=== PATIENT | male | born 1985 | race Caucasian/White ===

== ENCOUNTER 2017-07-24 15:25 | Emergency (ER) | payer OTHER ==
[~2017-07-24 15:25] MED LIST: GABA600T2 PO; OXCA600T3 PO; VILA10TA PO
--- NOTE | 2017-07-24 15:45 | PHYS DOC ---
Past History Past Medical History: Anxiety Past Surgical History: Tonsillectomy Alcohol Use: None Drug Use: None Adult General Chief Complaint Chief Complaint: TONGUE SWELLING/INJURY HPI HPI 32-year-old male presents with sudden onset and angioedema. The patient was eating a hamburger and chips when suddenly his lower lip began to swell. He had a burning sensation on the inside of his mouth just prior to the swelling. He feels as though the back of his tongue might be slightly swollen. He's had no difficulty breathing. This all started 45 minutes prior to arrival. Patient has never had this happen before. He is not on an ALDO inhibitor. He is however on Cymbalta and Trileptal. He has had no medication changes recently. Never been allergic to any food or food product. He denies shortness of breath or chest pain. He denies fever or chills. Took 50 mg of Benadryl prior to arrival. Review of Systems Review of Systems Constitutional: Denies fever or chills [] Eyes: Denies change in visual acuity, redness, or eye pain [] HENT: Swollen lower lip[] Respiratory: Denies cough or shortness of breath [] Cardiovascular: No additional information not addressed in HPI [] GI: Denies abdominal pain, nausea, vomiting, bloody stools or diarrhea [] : Denies dysuria or hematuria [] Musculoskeletal: Denies back pain or joint pain [] Integument: Denies rash or skin lesions [] Neurologic: Denies headache, focal weakness or sensory changes [] Endocrine: Denies polyuria or polydipsia [] All other systems were reviewed and found to be within normal limits, except as documented in this note. Current Medications Current Medications Current Medications Medications (Trade) Dose Ordered Sig/[facility] Start Time Stop Time Status Last Admin Dose Admin Famotidine (Pepcid Vial) 20 mg 1X ONCE 07/24/17 16:00 07/24/17 16:01 Methylprednisolone Sodium Succinate (SOLU-Medrol 125MG VIAL) 125 mg 1X ONCE 07/24/17 16:00 07/24/17 16:01 Allergies Allergies Allergies Coded Allergies Type Severity Reaction Last Updated Verified No Known Drug Allergies 08/30/15 No Physical Exam Physical Exam Constitutional: Well developed, well nourished, no acute distress, non-toxic appearance. [] HENT: Normocephalic, atraumatic, bilateral external ears normal, angioedema of the lower lip. Airway patent [] Eyes: PERRLA, EOMI, conjunctiva normal, no discharge. [] Neck: Normal range of motion, no tenderness, supple, no stridor. [] Cardiovascular:Heart rate regular rhythm, no murmur [] Lungs & Thorax: Bilateral breath sounds clear to auscultation [] Abdomen: Bowel sounds normal, soft, no tenderness, no masses, no pulsatile masses. [] Skin: Warm, dry, no erythema, no rash. [] Back: No tenderness, no CVA tenderness. [] Extremities: No tenderness, no cyanosis, no clubbing, ROM intact, no edema. [] Neurologic: Alert and oriented X 3, normal motor function, normal sensory function, no focal deficits noted. [] Psychologic: Affect normal, judgement normal, mood normal. [] EKG EKG [] Radiology/Procedures Radiology/Procedures [] Course & Med Decision Making Course & Med Decision Making Pertinent Labs and Imaging studies reviewed. (See chart for details) Trileptal has a side effect of angioedema. This is likely the cause. The patient 's angioedema stable thus far. We gave him Pepcid and Solu-Medrol. He remains stable with no difficulty breathing during his stay in the ED. His lip looks slightly less swollen. I advised the patient discontinue the carbamazapine. He will follow-up with his PCP to determine if he needs to restart a different medication. Dragon Disclaimer Dragon Disclaimer This electronic medical record was generated, in whole or in part, using a voice recognition dictation system. Departure Departure: Referrals: PCP,POOL (PCP) Scripts Prednisone (PREDNISONE) 50 Mg Tablet 1 TAB PO DAILY, #5 TAB As long as swelling is present Prov: FRANCISCO JAVIER VALERIO DO 07/24/17 FRANCISCO JAVIER VALERIO DO July 24, 2017 15:45
[2017-07-24 15:58] LABS: BASO # 0.1 x10^3/uL (0.0-0.2); BASO % 1 % (0-3); EOS # 0.3 x10^3/uL (0.0-0.7); EOS % 3 % (0-3); HEMATOCRIT 47.6 % (39.0-53.0); HEMOGLOBIN 16.5 g/dL (13.0-17.5); LYMPH # 2.9 x10^3/uL (1.0-4.8); LYMPH % 39 % (24-48); MEAN CORPUSCULAR HEMOGLOBIN 30 pg (25-35); MEAN CORPUSCULAR HGB CONC 35 g/dL (31-37); MEAN CORPUSCULAR VOLUME 87 fL (79-100); MONO # 0.5 x10^3/uL (0.0-1.1); MONO % 6 % (0-9); NEUT # 3.8 x10^3uL (1.8-7.7); NEUT % 51 % (31-73); PLATELET COUNT 199 x10^3/uL (140-400); RED BLOOD COUNT 5.46 x10^6/uL (4.30-5.70); RED CELL DISTRIBUTION WIDTH 12.7 % (11.5-14.5); WHITE BLOOD COUNT 7.4 x10^3/uL (4.0-11.0)
[2017-07-24] MEDS ORDERED: FAMOTIDINE 20 MG/2 ML VIAL IVP ONE (16:00)
[2017-07-24] MEDS ORDERED: methylPREDNISolone SOD SUCC PF 125 MG/2 ML VIAL. IV ONE (16:00)
[2017-07-24 16:07] LABS: CALCIUM 8.7 mg/dL (8.5-10.1); GFR 87.2; POTASSIUM 3.8 mmol/L (3.5-5.1)
[2017-07-24] MEDS ORDERED: PRED50TA PO (17:00)
[2017-07-24 17:40] VITALS: BP 135/74
== END 2017-07-24 17:40 | disposition home or self-care (01) ==
LOC: ER 15:25
DX: T78.3XXA Angioneurotic edema, initial encounter (principal); F41.9 Anxiety disorder, unspecified
CPT/HCPCS: 36415; 80048; 85025; 96374; 96375; 99284; J2930; S0028

== ENCOUNTER 2020-04-07 14:48 | Emergency (ER) | payer BC, OTHER ==
[~2020-04-07] VITALS: Ht 182.9 cm; Wt 121.3 kg
[~2020-04-07 14:48] MED LIST changes: -GABA600T2 PO; +GABA600T7 PO; +PRED50TA PO
--- NOTE | 2020-04-07 15:34 | RAD ---
CT of the abdomen and pelvis without contrast. 04/07/2020 3:05 PM Indication: Reason: RIGHT FLANK PAIN. HX OF KIDNEY STONES AND LITHO. DYSURIA / Spl. Instructions: / History: Comparison Study: None. Technique: Multidetector CT imaging of the abdomen pelvis is obtained without administration of contr ast. Findings: The visualized bilateral lung bases are clear. The liver, spleen, bilateral adrenal glands, gallbladder, and pancreas have a normal noncontrast enh anced appearance. There is mild nonspecific perinephric stranding bilaterally. Otherwise, the bilater al kidneys are grossly normal in appearance. There is no evidence of nephrolithiasis or obstructive u ropathy. The ureters are normal in course and caliber. The bladder is grossly unremarkable. There is no significant free fluid or free air in the abdomen or pelvis. There is no evidence of bow el obstruction or significant inflamatory change. The appendix is well visualized and grossly normal. There is no acute osseous abnormality identified. Impression: 1. No evidence of acute intra-abdominal abnormality 2. No evidence of nephrolithiasis or acute obstructive uropathy. CT DOSING PQRS STATEMENT: One or more of the following individualized dose reduction techniques were utilized for this examinat ion: 1. Automated exposure control 2. Adjustment of the mA and/or kV according to patient size 3. Use of iterative reconstruction technique Electronically signed by: Dustin Limon MD (04/07/2020 3:31 PM) [id number]
[2020-04-07 16:49] LABS: CLARITY,URINE CLEAR; COLOR,URINE YELLOW
[2020-04-07 16:50] LABS: BACTERIA,URINE 0 /HPF (0-FEW); BILIRUBIN,URINE NEG (NEG); GLUCOSE,URINE NEG (NEG); NITRITE,URINE NEG (NEG); RBC,URINE 0 /HPF (0-2); UROBILINOGEN,URINE 0.2 mg/dL (0.2 mg/dL); WBC,URINE 0 /HPF (0-4)
[2020-04-07] MEDS ORDERED: KETOROLAC 60 MG/2 ML VIAL. IM ONE (17:00)
[2020-04-07] MEDS ORDERED: ORPHENADRINE CITRATE 60 MG/2 ML VIAL. IM ONE (17:00)
[2020-04-07] MEDS ORDERED: CYCL5TAB PO (17:06)
[2020-04-07] MEDS ORDERED: IBUP800T19 PO (17:06)
--- NOTE | 2020-04-07 17:07 | PHYS DOC ---
Past History Past Medical History: Anxiety, Depression Past Surgical History: No Surgical History Alcohol Use: Rarely Drug Use: None General Adult EDM: Chief Complaint: FLANK PAIN HPI: HPI: 35-year-old male coming in for right flank pain starting yesterday. Patient states he has a history of bilateral kidney stones and status post stent in the past. Has passed one by himself. He states the pain is in a similar area but feels different. Denies any hematuria or dysuria. Denies any fevers, cough, left-sided back pain, diarrhea or constipation. No other past medical history Review of Systems: Review of Systems: All other systems within normal limits except for as noted in the HPI Current Medications: Current Meds: Current Medications Medications (Trade) Dose Ordered Sig/[facility] Start Time Stop Time Status Last Admin Dose Admin Ketorolac Tromethamine (Toradol Im) 60 mg 1X ONCE 04/07/20 17:00 04/07/20 17:01 UNV Orphenadrine Citrate (Norflex) 60 mg 1X ONCE 04/07/20 17:00 04/07/20 17:01 UNV Allergies: Allergies: Allergies Coded Allergies Type Severity Reaction Last Updated Verified No Known Drug Allergies 08/30/15 No Physical Exam: PE: Constitutional: Well developed, well nourished, no acute distress, non-toxic appearance. [] HENT: Normocephalic, atraumatic, bilateral external ears normal, nose normal. [] Eyes: PERRLA, conjunctiva normal, no discharge. [] Neck: No rigidity, supple, no stridor. [] Cardiovascular: Regular rate and rhythm, brisk cap refill [] Lungs & Thorax: Non labored symmetric respirations, no tachypnea or respiratory distress [] Abdomen: Soft, nondistended. Skin: Warm, dry, no erythema, no rash. [] Back: Unremarkable, right CVA tenderness, no spinal tenderness Extremities: No deformities, range of motion grossly intact, no lower extremity edema [] Neurologic: Alert and oriented X 3, no focal deficits noted. [] Psychologic: Affect normal, judgement normal, mood normal. [] Current Patient Data: Labs: Laboratory Tests Test 04/07/20 15:50 Urine Collection Type Unknown Urine Color Yellow Urine Clarity Clear Urine pH 7.0 Urine Specific [place] 1.015 Urine Protein Neg (NEG-TRACE) Urine Glucose (UA) Neg mg/dL (NEG) Urine Ketones (Stick) Neg mg/dL (NEG) Urine Blood Neg (NEG) Urine Nitrite Neg (NEG) Urine Bilirubin Neg (NEG) Urine Urobilinogen Dipstick 0.2 mg/dL (0.2 mg/dL) Urine Leukocyte Esterase Neg (NEG) Urine RBC 0 /HPF (0-2) Urine WBC 0 /HPF (0-4) Urine Squamous Epithelial Cells None /LPF Urine Bacteria 0 /HPF (0-FEW) EKG: EKG: [] Radiology/Procedures: Radiology/Procedures: CT of the abdomen and pelvis without contrast. 04/07/2020 3:05 PM Indication: Reason: RIGHT FLANK PAIN. HX OF KIDNEY STONES AND LITHO. DYSURIA / Spl. Instructions: / History: Comparison Study: None. Technique: Multidetector CT imaging of the abdomen pelvis is obtained without administration of contrast. Findings: The visualized bilateral lung bases are clear. The liver, spleen, bilateral adrenal glands, gallbladder, and pancreas have a normal noncontrast enhanced appearance. There is mild nonspecific perinephric stranding bilaterally. Otherwise, the bilateral kidneys are grossly normal in appearance. There is no evidence of nephrolithiasis or obstructive uropathy. The ureters are normal in course and caliber. The bladder is grossly unremarkable. There is no significant free fluid or free air in the abdomen or pelvis. There is no evidence of bowel obstruction or significant inflamatory change. The appendix is well visualized and grossly normal. There is no acute osseous abnormality identified. Impression: 1. No evidence of acute intra-abdominal abnormality 2. No evidence of nephrolithiasis or acute obstructive uropathy. [] Heart Score: Risk Factors: Risk Factors: DM, Current or recent (<one month) smoker, HTN, HLP, family history of CAD, obesity. Risk Scores: Score 0 - 3: 2.5% MACE over next 6 weeks - Discharge Home Score 4 - 6: 20.3% MACE over next 6 weeks - Admit for Clinical Observation Score 7 - 10: 72.7% MACE over next 6 weeks - Early Invasive Strategies Course & Med Decision Making: Course & Med Decision Making Pertinent Labs and Imaging studies reviewed. (See chart for details) [] Dragon Disclaimer: Draghussein Disclaimer: This electronic medical record was generated, in whole or in part, using a voice recognition dictation system. Departure Departure: Impression: Primary Impression: Right-sided back pain Disposition: 01 DC HOME SELF CARE/HOMELESS Condition: STABLE Referrals: PCP,POOL (PCP) Patient Instructions: Back Injury Prevention Scripts Ibuprofen (IBUPROFEN) 800 Mg Tablet 1 TAB PO TID PRN for PAIN for 10 Days, #30 TAB 1 Refill Prov: ABDI URIBE MD 04/07/20 Cyclobenzaprine Hcl (CYCLOBENZAPRINE HCL) 5 Mg Tablet 1 TAB PO TID PRN for PAIN for 5 Days, #15 TAB Prov: ABDI URIBE MD 04/07/20 ABDI URIBE MD Apr 07, 2020 17:07
[2020-04-07 17:14] VITALS: BP 139/80
== END 2020-04-07 17:15 | disposition home or self-care (01) ==
LOC: ER 14:48
DX: M54.89 Other dorsalgia (principal); R10.9 Unspecified abdominal pain; F41.9 Anxiety disorder, unspecified; F32.9 Major depressive disorder, single episode, unspecified; Z87.442 Personal history of urinary calculi
CPT/HCPCS: 74176; 81001; 96372; 99284; J1885; J2360

== ENCOUNTER 2020-08-03 14:09 | Emergency (ER) | payer BC ==
[~2020-08-03] VITALS: Ht 182.9 cm; Wt 119.0 kg
[~2020-08-03 14:09] MED LIST changes: +CYCL5TAB PO; +IBUP800T19 PO
[2020-08-03 14:24] VITALS: BP 167/105
[2020-08-03] MEDS ORDERED: KETOROLAC 60 MG/2 ML VIAL. IM ONE (15:00)
[2020-08-03] MEDS ORDERED: HYDROcodone/APAP 5/325MG 1 TAB TABLET PO ONE (15:00)
[2020-08-03] MEDS ORDERED: AMOXICILLIN/K CLAV 875/125MG TABLET. PO ONE (15:00)
[2020-08-03] MEDS ORDERED: LIDOCAINE 2% VISCOUS 15 ML SOLUTION. ONE (15:16)
[2020-08-03] MEDS ORDERED: LIDOCAINE 2% VISCOUS 15 ML SOLUTION. SWSW ONE (15:30)
--- NOTE | 2020-08-03 15:34 | PHYS DOC ---
Past History Past Medical History: High Cholesterol, Hypertension (USHA ROSARIO APRN) Past Surgical History: No Surgical History Additional Past Surgical Histo: SURGERY FOR KIDNEY STONES (USHA ROSARIO APRN) Additional Smoking Information: CEWS TOBACCO Alcohol Use: Rarely Drug Use: None (USHA ROSARIO APRN) Adult General Chief Complaint Chief Complaint: DENTAL PROBLEM HPI HPI Patient is a 35-year-old male presents emergency department complaining of right upper lip and gum swelling with dental pain that started last evening and has slowly become worse over the past 2 days. Patient reports he was renzo eduled to have a root canal 3 months ago on 3 of his teeth in the area of the swelling but was unable to afford the procedure and elected to postpone until he saved up money. Patient currently rates his pain a 7/10 on a 1-10 pain scale. Denies numbness or tingling to his face lip tongue or mouth, denies sore throat or throat swelling. Denies shortness of breath. Denies headaches, denies recent fever or chills. Patient denies chest pains, nausea, vomiting, diarrhea, or abdominal pains. Patient denies allergies to medications, reports he takes prescription Cymbalta, lisinopril, lovastatin, 81 mg aspirin, multivitamin. Patient denies any other physical complaints or physical concerns. Patient reports his last tetanus immunization was greater than 5 years ago. (USHA ROSARIO APRN) Review of Systems Review of Systems 14 body systems of review of systems have been reviewed. See HPI for pertinent positives and negative responses, otherwise all other systems are negative, nonpertinent or noncontributory. (USHA ROSARIO APRN) Current Medications Current Medications Current Medications Medications (Trade) Dose Ordered Sig/[facility] Start Time Stop Time Status Last Admin Dose Admin Acetaminophen/ Hydrocodone Bitart (Lortab 5/325) 2 tab 1X ONCE 08/03/20 15:00 08/03/20 15:01 DC 08/03/20 15:11 2 TAB Amoxicillin/ Clavulanate Potassium (Augmentin 875/ 125mg) 1 tab 1X ONCE 08/03/20 15:00 08/03/20 15:01 DC 08/03/20 15:11 1 TAB Ketorolac Tromethamine (Toradol Im) 60 mg 1X ONCE 08/03/20 15:00 08/03/20 15:01 DC 08/03/20 15:12 60 MG Lidocaine HCl (Viscous Lidocaine) 15 ml 1X ONCE 08/03/20 15:30 08/03/20 15:31 (USHA ROSARIO APRN) Allergies Allergies Allergies Coded Allergies Type Severity Reaction Last Updated Verified No Known Drug Allergies 08/30/15 No (USHA ROSARIO APRN) Physical Exam Physical Exam Constitutional: Well developed, well nourished, no acute distress, non-toxic appearance. 35-year-old male holding the right side of his face. HENT: Normocephalic, atraumatic, bilateral external ears normal, oropharynx moist, no oral exudates, nose normal. Oropharynx moist, pink, no uvular edema, no tonsillar swelling or edema, no laryngeal edema appreciated, no postnasal dri p. No loss of sensation to the face, mild swelling to upper lip right side of frenulum. No palpable abscess from external skin surfaces, patient has marked dental caries, and palpable apical abscess between upper teeth #11 and #12 measuring 3 mm in diameter. No drainage. No loss of sensation or movement of the tongue. Patient speaking in normal voice tones. No lymphadenopathy appreciated of the head or neck. Eyes: conjunctiva normal, no discharge. Neck: Normal range of motion, no tenderness, supple, no stridor. No nuchal rigidity, no meningismus signs. Cardiovascular: No cyanosis appreciated, distal cap refill less than 2 seconds. Lungs & Thorax: Patient is in no respiratory distress, no adventitious lung sounds appreciated audibly. Skin: Warm, dry, no erythema, no rash. Back: No tenderness Extremities: No tenderness, no cyanosis, no clubbing, ROM intact, no edema. Neurologic: Alert and oriented X 3, normal motor function, normal sensory function, no focal deficits noted. Psychologic: Affect normal, judgement normal, mood normal. (USHA ROSARIO APRN) Current Patient Data Vital Signs Vital Signs Date Time Temp Pulse Resp B/P (MAP) Pulse Ox O2 Delivery O2 Flow Rate FiO2 08/03/20 15:11 20 Room Air 08/03/20 14:24 98.9 98 167/105 (125) 98 (USHA ROSARIO APRN) EKG EKG [] (USHA ROSARIO APRN) Radiology/Procedures Radiology/Procedures [] (USHA ROSARIO APRN) Heart Score C/O Chest Pain: No Risk Factors: Risk Factors: DM, Current or recent (<one month) smoker, HTN, HLP, family history of CAD, obesity. Risk Scores: Risk Factors: DM, Current or recent (<one month) smoker, HTN, HLP, family history of CAD, obesity. (USHA ROSARIO APRN) Course & Med Decision Making Course & Med Decision Making Pertinent Labs and Imaging studies reviewed. (See chart for details) 35-year-old male, vital signs reviewed, presents emergency department complaining of right upper lip swelling with gum swelling near his tooth. Physical examination consistent with periapical abscess, will I&D, please see I&D procedure note, will start on Augmentin twice daily x14 days in the emergency department, p.o. Dale for pain. 60 mg IM Toradol, the patient's tetanus status brought up-to-date today in the emergency department with Adacel Tdap medication I&D procedure complete, gave patient strict follow-up instructions with dentist or maxillofacial surgeon within the next 24 to 48 hours, call tomorrow for an appointment, return to ER precautions and concerns. Patient reports pain 4/10 1-10 pain scale. Patient gave verbal understanding of discharge home instructions, and prescription medication use, follow-up with dentist or maxillofacial surgeon, return to ER precautions or concerns, patient states he feels much better is ready to go home, patient was discharged home without incident. (USHA ROSARIO APRN) Dragon Disclaimer Dragon Disclaimer This electronic medical record was generated, in whole or in part, using a voice recognition dictation system. (USHA ROSARIO APRN) Incision and Drainage Indication: Periapical abscess Procedure: The patient was positioned appropriately and the skin over the incision site was chlorhexidine soap and water. Local anesthesia was achieved with topical 2% viscous lidocaine. An incision was then made over the central abscess site, less than 1 cc purulent material was expressed. Loculations were there were no loculations. The drainage cavity was not large enough to pack, a 2 x 2 gauze was placed between the incision site and upper lip.. The patients tetanus status was brought up-to-date today in the emergency department with Adacel Tdap medication. The patient tolerated the procedure well. Complications: There were no complications (USHA ROSARIO APRN) Attending Co-Sign The patient was seen and interviewed as well as examined at the bedside. The chart was reviewed. The case was discussed. Agree with the plan of care. (FRANCISCO JAVIER VALERIO DO) Departure Departure: Impression: Primary Impression: Periapical abscess Additional Impression: Need for Tdap vaccination Disposition: HOME / SELF CARE / HOMELESS Condition: GOOD Referrals: DOREEN WINTER MD (PCP) Additional Instructions: You had a abscess in your gum above your tooth, it was drained today in the emergency department, you were started on antibiotics, please take twice a day for the next 14 days, I have prescribed for you Dale and ibuprofen for pain management please take as directed, do not operate heavy machinery or drive while taking Dale for pain. It is imperative that you see your dentist or a maxillofacial surgeon within the next 24 to 48 hours for reevaluation. Please call tomorrow morning for an appointment. Return to emergency department for worsening symptoms or other concerns. Your tetanus immunization was brought up today in the emergency department with a medication called Adacel Tdap. You may use warm salt water swish and spit for discomfort, you may also use antiseptic mouthwash, please brush your teeth and perform good oral care daily. EMERGENCY DEPARTMENT GENERAL DISCHARGE INSTRUCTIONS Thank you for coming to [facility] (ED) today and trusting us with you care. We trust that you had a positivie experience in our Emergency Department. If you wish to speak to the department management, you may call the director at [phone]. YOUR FOLLOW UP INSTRUCTIONS ARE FOLLOWS: 1. Do you have a private Doctor? If you do not have a private doctor, please ask for a resource list of physicians or clinics that may be able to assist you with follow up care. 2. The Emergency Physician has interpreted your x-rays. The X-Ray specialist will also review them. If there is a change in the findings, you will be notified in 48 hours when at all possible. 3. A lab test or culture has been done, your results will be reviewed and you will be notified if you need a change in treatment. ADDITIONAL INSTRUCTIONS AND INFORMATION: 1. Your care today has been supervised by a physician who is specially trained in emergency care. Many problems require more than one evaluation for a complete diagnosis and treatment. We recommend that you schedule your follow up appointment as recommended to ensure complete treatment of you illness or injury. If you are unable to obtain follow up care and continue to have a problem, or if your condition worsens, we recommend that you return to the ED. 2. We are not able to safely determine your condition over the phone nor are we able to give sound medical advice over the phone. For these safety reasons, if you call for medical advice we will ask you to come to the ED for further evaluation. 3. If you have any questions regarding these discharge instructions please call the ED at [phone]. SAFETY INFORMATION: In the interest of safety, wellness, and injury prevention; we encourage you to wear your sealbelt, if you smoke; quite smoking, and we encourage family to use a protective helmet for bicycling and other sporting events that present an increased risk for head injury. IF YOUR SYMPTOMS WORSEN OR NEW SYMPTOMS DEVELOP, OR YOU HAVE CONCERNS ABOUT YOUR CONDITION; OR IF YOUR CONDITION WORSENS WHILE YOU ARE WAITING FOR YOUR FOLLOW UP APPOINTMENT; EITHER CONTACT YOUR PRIMARY CARE DOCTOR, THE PHYSICIAN WHOSE NAME AND NUMBER YOU WERE GIVEN, OR RETURN TO THE ED IMMEDIATELY. Scripts Hydrocodone Bit/Acetaminophen (HYDROCODONE-APAP 7.5-325 ) 1 Each Tablet 1 TAB PO PRN Q6HRS PRN for SEVERE PAIN 7-10, #15 TAB 0 Refills Prov: USHA ROSARIO APRN 08/03/20 Ibuprofen (IBUPROFEN) 600 Mg Tablet 600 MG PO TID PRN PRN for PAIN, #20 TAB 0 Refills Prov: USHA ROSARIO APRN 08/03/20 Amoxicillin/Potassium Clav (AUGMENTIN 875-125 TABLET) 1 Each Tablet 1 TAB PO BID for dental infection for 14 Days, #28 TAB 0 Refills Prov: USHA ROSARIO APRN 08/03/20 Problem Qualifiers USHA ROSARIO APRN Aug 03, 2020 15:34 FRANCISCO JAVIER VALERIO DO Aug 04, 2020 13:44
[2020-08-03] MEDS ORDERED: IBUP600T16 PO (16:30)
[2020-08-03] MEDS ORDERED: HYDR-2765 PO (16:30)
[2020-08-03] MEDS ORDERED: AMOX1TAB61 PO (16:30)
[2020-08-03] MEDS ORDERED: DIPH,PERTUSS(ACELL),TET VAC/PF 0.5 ML SYRINGE. VAX IM ONE (16:30)
== END 2020-08-03 16:39 | disposition home or self-care (01) ==
LOC: ER 14:09
DX: K04.7 Periapical abscess without sinus (principal); E78.00 Pure hypercholesterolemia, unspecified; I10 Essential (primary) hypertension; F17.220 Nicotine dependence, chewing tobacco, uncomplicated; Z87.442 Personal history of urinary calculi
CPT/HCPCS: 41800; 90471; 90715; 96372; 99284; J1885

== ENCOUNTER 2021-02-02 16:20 | Emergency (ER) | payer BC ==
[~2021-02-02] VITALS: Ht 182.9 cm; Wt 119.3 kg
[~2021-02-02 16:20] MED LIST changes: +AMOX1TAB61 PO; +HYDR-2765 PO; +IBUP600T16 PO
[2021-02-02] MEDS ORDERED: IBUPROFEN 600 MG TABLET. PO ONE (17:00)
[2021-02-02] MEDS ORDERED: ACETAMINOPHEN 500 MG TABLET PO ONE (17:00)
[2021-02-02] MEDS ORDERED: IV NORMAL SALINE 1,000ML 1,000 ML IV SCH (17:00)
--- NOTE | 2021-02-02 17:03 | PHYS DOC ---
Past History Past Medical History: High Cholesterol, Hypertension (VIBHA QUINTEROS APRN) Past Surgical History: No Surgical History Additional Past Surgical Histo: SURGERY FOR KIDNEY STONES (VIBHA QUINTEROS APRN) Alcohol Use: Rarely Drug Use: None (VIBHA QUINTEROS APRN) General Adult EDM: Chief Complaint: FEVER HPI: HPI: Patient is a 35-year-old male who presents to the emergency department today for fever, body aches, productive cough, headache that started yesterday. Patient reports that he took ibuprofen this morning at 3 AM and Tylenol at noon. He says that his is sick with the same symptoms but has not been seen by Dr. He denies any travel. He is vaccinated with [employer]. He denies any shortness of breath, chest pain, abdominal pain, nausea, vomiting. He is not requiring any oxygen or not hypoxic, he is febrile in the emergency department and he is mildly tachycardic with heart rate of 98 to 102 bpm. (VIBHA QUINTEROS APRN) Review of Systems: Review of Systems: Constitutional: See HPI HENT: See HPI Respiratory: See HPI Cardiovascular: See HPI GI: See HPI Musculoskeletal: See HPI Neurologic: See HPI (VIBHA QUINTEROS APRN) Current Medications: Current Meds: Current Medications Medications (Trade) Dose Ordered Sig/Mitzy Start Time Stop Time Status Last Admin Dose Admin Acetaminophen (Tylenol) 1,000 mg 1X ONCE 02/02/21 17:00 02/02/21 17:01 UNV Ibuprofen (Motrin) 600 mg 1X ONCE 02/02/21 17:00 02/02/21 17:01 UNV Sodium Chloride 1,000 ml @ 1,000 mls/hr Q1H 02/02/21 17:00 02/02/21 17:59 UNV (VIBHA QUINTEROS APRN) Allergies: Allergies: Allergies Coded Allergies Type Severity Reaction Last Updated Verified No Known Drug Allergies 08/30/15 No (VIBHA QUINTEROS APRN) Physical Exam: PE: Constitutional: Well developed, well nourished, no acute distress, non-toxic appearance. [] HENT: Normocephalic, atraumatic, bilateral external ears normal, oropharynx moist, no oral exudates, nose normal. [] Eyes: PERRL, EOMI, conjunctiva normal, no discharge. [] Neck: Normal range of motion, no stridor Cardiovascular:Heart rate regular rhythm, no murmur [] Lungs & Thorax: Bilateral breath sounds clear to auscultation [] Abdomen: Bowel sounds normal, soft, no tenderness, no masses, no pulsatile masses. [] Skin: Warm, dry, no erythema, no rash. [] Back:normal ROM Extremities: No tenderness, no cyanosis, no clubbing, ROM intact, no edema. [] Neurologic: Alert and oriented X 3, normal motor function, normal sensory function, no focal deficits noted. [] Psychologic: Affect normal, judgement normal, mood normal. [] (VIBHA QUINTEROS APRN) Current Patient Data: Labs: Laboratory Tests Test 02/02/21 17:00 02/02/21 17:14 White Blood Count 5.9 x10^3/uL Red Blood Count 4.48 x10^6/uL Hemoglobin 13.5 g/dL Hematocrit 38.8 % Mean Corpuscular Volume 87 fL Mean Corpuscular Hemoglobin 30 pg Mean Corpuscular Hemoglobin Concent 35 g/dL Red Cell Distribution Width 12.2 % Platelet Count 151 x10^3/uL Neutrophils (%) (Auto) 65 % Lymphocytes (%) (Auto) 17 % Monocytes (%) (Auto) 16 % Eosinophils (%) (Auto) 1 % Basophils (%) (Auto) 1 % Neutrophils # (Auto) 3.8 x10^3uL Lymphocytes # (Auto) 1.0 x10^3/uL Monocytes # (Auto) 1.0 x10^3/uL Eosinophils # (Auto) 0.1 x10^3/uL Basophils # (Auto) 0.0 x10^3/uL Sodium Level 138 mmol/L Potassium Level 3.7 mmol/L Chloride Level 101 mmol/L Carbon Dioxide Level 28 mmol/L Anion Gap 9 Blood Urea Nitrogen 6 mg/dL Creatinine 1.1 mg/dL Estimated GFR (Cockcroft-Gault) 76.6 BUN/Creatinine Ratio 5 Glucose Level 104 mg/dL Calcium Level 8.4 mg/dL Total Bilirubin 0.4 mg/dL Aspartate Amino Transf (AST/SGOT) 37 U/L Alanine Aminotransferase (ALT/SGPT) 43 U/L Alkaline Phosphatase 76 U/L Troponin I High Sensitivity 5 ng/L Total Protein 6.4 g/dL Albumin 3.7 g/dL Albumin/Globulin Ratio 1.4 Influenza Type A (Rapid) Negative Influenza Type B (Rapid) Negative SARS-CoV-2 Antigen (Rapid) Negative Current Medications Medications (Trade) Dose Ordered Sig/Mitzy Route PRN Reason Start Time Stop Time Status Last Admin Dose Admin Sodium Chloride 1,000 ml @ 1,000 mls/hr Q1H IV 02/02/21 17:00 02/02/21 17:59 DC 02/02/21 17:07 Ibuprofen (Motrin) 600 mg 1X ONCE PO 02/02/21 17:00 02/02/21 17:01 DC 02/02/21 17:00 Acetaminophen (Tylenol) 1,000 mg 1X ONCE PO 02/02/21 17:00 02/02/21 17:01 DC 02/02/21 17:07 Fentanyl Citrate (Fentanyl 2ml Vial) 50 mcg 1X ONCE IVP 02/02/21 18:15 02/02/21 18:16 DC (VIBHA QUINTEROS APRN) EKG: EKG: EKG performed by ER staff at 1709 shows sinus rhythm with a rate of 91, QTc 427, no STEMI read by Dr. Nelson at 1714 [] (VIBHA QUINTEROS APRN) Radiology/Procedures: Radiology/Procedures: []PROCEDURE: PORTABLE CHEST 1V EXAMINATION: XR CHEST 1V CLINICAL HISTORY: SHORTNESS OF BREATH, PUI COVID EXAM DATE/TIME: 02/02/2021 5:03 PM COMPARISON: None FINDINGS: Lines, Tubes, and Devices: None. Cardiomediastinal Silhouette: Within normal limits. Lungs and Pleura: Minimal bibasilar opacities, possibly subsegmental atelectasis. No evidence of focal airspace consolidation or pleural effusion. Pulmonary vasculature unremarkable. Bones and Soft Tissues: No acute osseous abnormality. IMPRESSION: Minimal bibasilar opacities, possibly subsegmental atelectasis. Electronically signed by: Tian Omer DO (02/02/2021 5:26 PM) [facility] DICTATED AND SIGNED BY: TIAN OMER DO DATE: 02/02/21 1725 CC: DOREEN WINTER MD; VIBHA QUINTEROS APRN ~MTH0 0 (VIBHA QUINTEROS APRN) Heart Score: C/O Chest Pain: No Risk Factors: Risk Factors: DM, Current or recent (<one month) smoker, HTN, HLP, family history of CAD, obesity. Risk Scores: Score 0 - 3: 2.5% MACE over next 6 weeks - Discharge Home Score 4 - 6: 20.3% MACE over next 6 weeks - Admit for Clinical Observation Score 7 - 10: 72.7% MACE over next 6 weeks - Early Invasive Strategies (VIBHA QUINTEROS APRN) Course & Med Decision Making: Course & Med Decision Making Pertinent Labs and Imaging studies reviewed. (See chart for details) Patient presents to the emergency department today for multiple complaints including fever, body aches, headache, productive cough. Patient is noted to be febrile in the ER and this was treated with Tylenol and Motrin. Patient was also noted to be mildly tachycardic with a heart rate of 98 to 102 bpm. He was treated with IV fluids. Patient will also have blood work, EKG, chest x-ray, Covid and flu testing. Patient's blood work was unremarkable. His rapid influenza and COVID-19 tests were negative also. A Covid PCR will be sent out to confirm and he will be notified of those results in 2 days, advised to self isolate pending results. Chest x-ray read by the radiologist shows minimal bibasilar opacities, patient will be treated with an antibiotic. Patient advised to rest, increase fluids take Tylenol and ibuprofen for his pain and follow-up with his doctor. Patient's vital signs remained stable, he is not tachycardic or hypoxic. He is temperature following treatment has improved and he is afebrile at this time. I discussed with patient all findings and diagnostic testing as well as the need to follow-up with PCP for further evaluation and treatment or return to the ER if any new or worsening symptoms. Strict return precautions were also discussed at length. Patient voiced u nderstanding and agreement with the plan. Patient is hemodynamically stable at the time of disposition. (VIBHA QUINTEROS APRN) Dragon Disclaimer: Dragon Disclaimer: This electronic medical record was generated, in whole or in part, using a voice recognition dictation system. (VIBHA QUINTEROS APRN) Departure Departure: Impression: Primary Impression: Person under investigation for COVID-19 Additional Impression: Pneumonia Qualified Codes: J18.9 - Pneumonia, unspecified organism Disposition: HOME / SELF CARE / HOMELESS Condition: GOOD Referrals: DOREEN WINTER MD (PCP) Patient Instructions: Pneumonia, Adult Additional Instructions: You were seen in the emergency department for multiple complaints including fever, body aches, cough, headache. Your vital signs were stable and you are not requiring any oxygen. Your blood work was unremarkable. Your rapid influenza and COVID-19 test were negative. A Covid PCR is being sent out to confirm the results and you will be notified of them in 2 days, please self isolate until you receive these results. Chest x-ray showed mild bibasilar pneumonia, this will be treated with antibiotic. Make sure that you start and finish the antibiotic completely. Increase your fluids and rest at home. For your fever and body aches make sure that you are taking Tylenol and ibuprofen as directed. Please follow-up with your primary care provider tomorrow regarding your ER visit. Please return to the emergency department if you develop shortness of breath, chest pain, high fevers refractory to treatment, intractable nausea or vomiting, severe weakness or any new or worsening concerns. Scripts Azithromycin (AZITHROMYCIN TABLET) 250 Mg Tablet 1 PKG PO UD for pneumonia for 5 Days, #6 TAB 0 Refills 2 the first day followed by 1 for days 2-5 Prov: VIBHA QUINTEROS APRN 02/02/21 Attending Signature Attending Signature I have participated in the care of this patient and I have reviewed and agree with all pertinent clinical information above including history, exam, and recommendations. (MARCIE CAMPBELL MD) VIBHA QUINTEROS APRN Feb 02, 2021 17:03 MARCIE CAMPBELL MD Feb 03, 2021 08:44
--- NOTE | 2021-02-02 17:28 | RAD ---
EXAMINATION: XR CHEST 1V CLINICAL HISTORY: SHORTNESS OF BREATH, PUI COVID EXAM DATE/TIME: 02/02/2021 5:03 PM COMPARISON: None FINDINGS: Lines, Tubes, and Devices: None. Cardiomediastinal Silhouette: Within normal limits. Lungs and Pleura: Minimal bibasilar opacities, possibly subsegmental atelectasis. No evidence of foca l airspace consolidation or pleural effusion. Pulmonary vasculature unremarkable. Bones and Soft Tissues: No acute osseous abnormality. IMPRESSION: Minimal bibasilar opacities, possibly subsegmental atelectasis. Electronically signed by: Tian Lieberman DO (02/02/2021 5:26 PM) [place]
[2021-02-02 17:34] LABS: BASO % 1 % (0-3); EOS # 0.1 x10^3/uL (0.0-0.7); EOS % 1 % (0-3); HEMATOCRIT 38.8 % (39.0-53.0); HEMOGLOBIN 13.5 g/dL (13.0-17.5); LYMPH % 17 % (24-48); MEAN CORPUSCULAR HEMOGLOBIN 30 pg (25-35); MEAN CORPUSCULAR HGB CONC 35 g/dL (31-37); MEAN CORPUSCULAR VOLUME 87 fL (79-100); MONO % 16 % (0-9); NEUT # 3.8 x10^3uL (1.8-7.7); NEUT % 65 % (31-73); PLATELET COUNT 151 x10^3/uL (140-400); RED BLOOD COUNT 4.48 x10^6/uL (4.30-5.70); RED CELL DISTRIBUTION WIDTH 12.2 % (11.5-14.5); WHITE BLOOD COUNT 5.9 x10^3/uL (4.0-11.0)
[2021-02-02 17:49] LABS: CALCIUM 8.4 mg/dL (8.5-10.1); CREATININE 1.1 mg/dL (0.7-1.3); GFR 76.6; POTASSIUM 3.7 mmol/L (3.5-5.1)
[2021-02-02 17:53] LABS: ALBUMIN 3.7 g/dL (3.4-5.0); ALBUMIN/GLOBULIN RATIO 1.4 (1.0-1.7); TOTAL BILIRUBIN 0.4 mg/dL (0.2-1.0); TOTAL PROTEIN 6.4 g/dL (6.4-8.2)
[2021-02-02 18:30] LABS: INFLUENZA A PATIENT NEGATIVE (NEGATIVE); INFLUENZA B PATIENT NEGATIVE (NEGATIVE)
[2021-02-02] MEDS ORDERED: AZIT250T6 PO (18:43)
[2021-02-02 18:59] VITALS: BP 145/87
--- NOTE | 2021-02-03 03:04 | EKG ---
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
--- NOTE | 2021-02-04 11:55 | NUR ---
PT NOTIFIED OF COVID RESULTS
== END 2021-02-02 19:07 | disposition home or self-care (01) ==
LOC: ER 16:20
DX: J18.9 Pneumonia, unspecified organism (principal); E78.00 Pure hypercholesterolemia, unspecified; I10 Essential (primary) hypertension; Z20.822 Contact with and (suspected) exposure to COVID-19
CPT/HCPCS: 71045; 80053; 84484; 85025; 87426; 87804; 93005; 96361; 96374; 99285; C9803; J3010; J7030; U0003

== ENCOUNTER 2021-05-19 15:50 | Emergency (ER) | payer BC ==
[~2021-05-19] VITALS: Ht 182.9 cm; Wt 119.3 kg
[~2021-05-19 15:50] MED LIST changes: +AZIT250T6 PO
[2021-05-19 15:58] VITALS: BP 137/93
[2021-05-19] MEDS ORDERED: IV RINGERS SOLUTION,LACTATED 1,000 ML IV ONE (16:00)
[2021-05-19] MEDS ORDERED: KETOROLAC 15 MG/ML VIAL. IVP ONE (16:00)
--- NOTE | 2021-05-19 16:22 | RAD ---
Single view of the chest. 05/19/2021 4:04 PM Indication: Chest pain, congestion, fatigue Comparison: Chest radiograph February 02, 2021 Findings: There is no focal consolidation. There is no pleural effusion or pneumothorax. The cardiome diastinal silhouette and pulmonary vasculature are within normal limits. No acute osseous abnormaliti es are seen. Impression: No evidence of acute cardiopulmonary process. Electronically signed by: Dustin Limon MD (05/19/2021 4:19 PM) [id number]
[2021-05-19 16:29] LABS: BASO # 0.1 x10^3/uL (0.0-0.2); BASO % 1 % (0-3); EOS % 0 % (0-3); HEMATOCRIT 46.7 % (39.0-53.0); HEMOGLOBIN 15.6 g/dL (13.0-17.5); LYMPH # 2.2 x10^3/uL (1.0-4.8); LYMPH % 22 % (24-48); MEAN CORPUSCULAR HEMOGLOBIN 30 pg (25-35); MEAN CORPUSCULAR HGB CONC 34 g/dL (31-37); MEAN CORPUSCULAR VOLUME 88 fL (79-100); MONO # 0.4 x10^3/uL (0.0-1.1); MONO % 4 % (0-9); NEUT % 72 % (31-73); PLATELET COUNT 218 x10^3/uL (140-400); RED CELL DISTRIBUTION WIDTH 13.1 % (11.5-14.5); WHITE BLOOD COUNT 9.7 x10^3/uL (4.0-11.0)
--- NOTE | 2021-05-19 16:31 | EKG ---
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
[2021-05-19 16:33] LABS: CALCIUM 9.2 mg/dL (8.5-10.1); CREATININE 1.1 mg/dL (0.7-1.3); GFR 76.2; POTASSIUM 3.4 mmol/L (3.5-5.1)
[2021-05-19 16:38] LABS: ALBUMIN 4.6 g/dL (3.4-5.0); ALBUMIN/GLOBULIN RATIO 1.4 (1.0-1.7); MAGNESIUM 2.2 mg/dL (1.8-2.4); TOTAL BILIRUBIN 0.6 mg/dL (0.2-1.0); TOTAL PROTEIN 7.8 g/dL (6.4-8.2)
--- NOTE | 2021-05-19 16:42 | PHYS DOC ---
Past History Past Medical History: High Cholesterol, Hypertension (GERTRUDE CRAFT) Past Surgical History: Tonsillectomy, Other Additional Past Surgical Histo: SURGERY FOR KIDNEY STONES (GERTRUDE CRAFT) Alcohol Use: Rarely Drug Use: None (GERTRUDE CRAFT) General Adult EDM: Chief Complaint: CHEST PAIN HPI: HPI: Patient is a 36 year old male who presents with chest tightness, chest congestion fatigue. Patient was seen at [facility] and advised to present to ER/urgent care for follow-up. It seems that the nurse practitioner at the [facility] was concerned due to patient's symptoms as well as his fatigue and observed pallor at that time. Patient also recently had a dental infection. Patient denies fever, chills, palpitations, shortness of breath, cough. He stat es his current symptoms feel similar to a combination of when he had pneumonia in January and COVID-19 in February. (GERTRUDE CRAFT) Review of Systems: Review of Systems: Constitutional: See HPI Eyes: Denies change in visual acuity, visual field deficits or discharge HENT: Denies ear pain, nasal congestion or sore throat Respiratory: See HPI Cardiovascular: See HPI GI: Denies abdominal pain, nausea, vomiting, bloody stools or diarrhea : Denies dysuria or hematuria Musculoskeletal: Denies back pain or joint pain Integument: Denies rash or other skin lesion Neurologic: Denies headache, focal weakness or sensory changes (GERTRUDE CRAFT) Current Medications: Current Meds: Current Medications Medications (Trade) Dose Ordered Sig/Mitzy Start Time Stop Time Status Last Admin Dose Admin Ketorolac Tromethamine (Toradol 15mg Vial) 15 mg 1X ONCE 05/19/21 16:00 05/19/21 16:01 DC 05/19/21 16:07 15 MG Lactated Ringer's 1,000 ml @ 1,000 mls/hr 1X ONCE 05/19/21 16:00 05/19/21 16:59 05/19/21 16:07 1,000 MLS/HR (GERTRUDE CRAFT) Allergies: Allergies: Allergies Coded Allergies Type Severity Reaction Last Updated Verified No Known Drug Allergies 08/30/15 No (GERTRUDE CRAFT) Physical Exam: PE: Constitutional: Well developed, well nourished, no acute distress, non-toxic appearance. HENT: Normocephalic, atraumatic, bilateral external ears normal, nose normal. Eyes: EOMI, conjunctiva normal, no discharge. Neck: Normal range of motion, no stridor. Cardiovascular: Heart regular rate and rhythm. No murmurs, rubs or gallops. Lungs & Thorax: Equal thoracic expansion, no chest wall tenderness or crepitus, bilateral breath sounds clear to auscultation. Skin: Warm, dry, no erythema, no rash. Extremities: No cyanosis, no clubbing, active ROM intact, no edema. Neurologic: Alert and oriented x3, no focal deficits noted. (GERTRUDE CRAFT) Current Patient Data: Labs: Laboratory Tests Test 05/19/21 15:57 White Blood Count 9.7 x10^3/uL (4.0-11.0) Red Blood Count 5.30 x10^6/uL (4.30-5.70) Hemoglobin 15.6 g/dL (13.0-17.5) Hematocrit 46.7 % (39.0-53.0) Mean Corpuscular Volume 88 fL (79-100) Mean Corpuscular Hemoglobin 30 pg (25-35) Mean Corpuscular Hemoglobin Concent 34 g/dL (31-37) Red Cell Distribution Width 13.1 % (11.5-14.5) Platelet Count 218 x10^3/uL (140-400) Neutrophils (%) (Auto) 72 % (31-73) Lymphocytes (%) (Auto) 22 % (24-48) L Monocytes (%) (Auto) 4 % (0-9) Eosinophils (%) (Auto) 0 % (0-3) Basophils (%) (Auto) 1 % (0-3) Neutrophils # (Auto) 7.0 x10^3uL (1.8-7.7) Lymphocytes # (Auto) 2.2 x10^3/uL (1.0-4.8) Monocytes # (Auto) 0.4 x10^3/uL (0.0-1.1) Eosinophils # (Auto) 0.0 x10^3/uL (0.0-0.7) Basophils # (Auto) 0.1 x10^3/uL (0.0-0.2) Sodium Level 138 mmol/L (136-145) Potassium Level 3.4 mmol/L (3.5-5.1) L Chloride Level 101 mmol/L (98-107) Carbon Dioxide Level 28 mmol/L (21-32) Anion Gap 9 (6-14) Blood Urea Nitrogen 13 mg/dL (8-26) Creatinine 1.1 mg/dL (0.7-1.3) Estimated GFR (Cockcroft-Gault) 76.2 BUN/Creatinine Ratio 12 (6-20) Glucose Level 155 mg/dL (70-99) H Calcium Level 9.2 mg/dL (8.5-10.1) Magnesium Level Pending Total Bilirubin Pending Aspartate Amino Transferase (AST) Pending Alanine Aminotransferase (ALT) Pending Alkaline Phosphatase Pending Total Protein Pending Albumin Pending Albumin/Globulin Ratio Pending Lipase Pending Vital Signs: Vital Signs Date Time Temp Pulse Resp B/P (MAP) Pulse Ox O2 Delivery O2 Flow Rate FiO2 05/19/21 15:58 98.4 106 18 137/93 (108) 98 Room Air BP <120/80, HR <100 on departure (GERTRUDE CRAFT) EKG: EKG: EKG Interpreted by Dr. Valerio at 1600: Regular rate and rhythm 90 bpm with no ectopic beats. QT 356 ms/QTc 440 ms. No STEMI. (GERTRUDE CRAFT) Radiology/Procedures: Radiology/Procedures: PROCEDURE: CHEST AP ONLY Single view of the chest. 05/19/2021 4:04 PM Indication: Chest pain, congestion, fatigue Comparison: Chest radiograph February 02, 2021 Findings: There is no focal consolidation. There is no pleural effusion or pneumothorax. The cardiomediastinal silhouette and pulmonary vasculature are within normal limits. No acute osseous abnormalities are seen. Impression: No evidence of acute cardiopulmonary process. Electronically signed by: Dustin Limon MD (05/19/2021 4:19 PM) [id number] (GERTRUDE CRAFT) Heart Score: C/O Chest Pain: N/A (GERTRUDE CRAFT) Course & Med Decision Making: Course & Med Decision Making Pertinent Labs and Imaging studies reviewed. (See chart for details) Patient is a 36-year-old male who presents with chest discomfort, congestion and fatigue. Cardiopulmonary work-up today is unremarkable. Patient was given supportive treatment measures for upper respiratory infection. Strict return precautions were provided. He is instructed to follow-up primary care provider regarding ongoing symptoms since being diagnosed with COVID-19 a couple of months ago. All patient questions were answered. He understands and is agreeable with discharge plan. (GERTRUDE CRAFT) Naomi Disclaimer: Draghussein Disclaimer: This electronic medical record was generated, in whole or in part, using a voice recognition dictation system. (GERTRUDE CRAFT) Attending Co-Sign The patient was seen and interviewed as well as examined at the bedside. The chart was reviewed. The case was discussed. Agree with the plan of care. (FRANCISCO JAVIER VALERIO DO) Departure Departure: Impression: Primary Impression: Upper respiratory infection Qualified Codes: J06.9 - Acute upper respiratory infection, unspecified Disposition: HOME / SELF CARE / HOMELESS Condition: STABLE Referrals: DOREEN WINTER MD (PCP) Patient Instructions: Upper Respiratory Infection, Adult, [id number] Additional Instructions: Follow the following supportive treatment measures: - Cool mist humidifier with plain water at bedside while you sleep - Mucinex (guaifenesin) per box instructions - Alternate ibuprofen and acetaminophen every four hours for body aches/fever/headache - Use the incentive spirometer 5 times per day with 10 deep breaths each time EMERGENCY DEPARTMENT GENERAL DISCHARGE INSTRUCTIONS Thank you for coming to [facility] (ED) today and trusting us with you care. We trust that you had a positive experience in our Emergency Department. If you wish to speak to the department management, you may call the director at [phone]. YOUR FOLLOW UP INSTRUCTIONS ARE FOLLOWS: 1. Follow up with your primary care doctor. If you do not have a primary doctor, please ask for a resource list of physicians or clinics that may be able to assist you with follow up care. 2. The emergency provider has interpreted your imaging studies, if any were ordered. The radiology acoustic intelligence specialist also reviewed them. If there is a change in the findings, you will be notified in 48 hours when at all possible. 3. If a lab test or culture has been done, your results will be reviewed and you will be notified if you need a change in treatment. 4. Follow instructions verbalized to you and refer to the printouts if needed. ADDITIONAL INSTRUCTIONS AND INFORMATION: 1. Your care today has been supervised by a physician who is specially trained in emergency care. Many problems require more than one evaluation for a complete diagnosis and treatment. We recommend that you schedule your follow up appointment as recommended to ensure complete treatment of you illness or injury. If you are unable to obtain follow up care and continue to have a problem, or if your condition worsens, we recommend that you return to the ED. 2. We are not able to safely determine your condition over the phone nor are we able to give sound medical advice over the phone. For these safety reasons, if you call for medical advice we will ask you to come to the ED for further evaluation. 3. If you have any questions regarding these discharge instructions please call the ED at [phone]. SAFETY INFORMATION: In the interest of safety, wellness, and injury prevention; we encourage you to wear your seat belt, if you smoke; quite smoking, and we encourage family to use a protective helmet for bicycling and other sporting events that present an increased risk for head injury. IF YOUR SYMPTOMS WORSEN OR NEW SYMPTOMS DEVELOP, OR YOU HAVE CONCERNS ABOUT YOUR CONDITION; OR IF YOUR CONDITION WORSENS WHILE YOU ARE WAITING FOR YOUR FOLLOW UP APPOINTMENT; EITHER CONTACT YOUR PRIMARY CARE DOCTOR, THE PHYSICIAN WHOSE NAME AND NUMBER YOU WERE GIVEN, OR RETURN TO THE ED IMMEDIATELY. GERTRUDE CRAFT May 19, 2021 16:42 FRANCISCO JAVIER VALERIO DO May 21, 2021 18:42
[2021-05-19 17:33] LABS: INFLUENZA A PATIENT NEGATIVE (NEGATIVE); INFLUENZA B PATIENT NEGATIVE (NEGATIVE)
== END 2021-05-19 18:30 | disposition home or self-care (01) ==
LOC: ER 15:50
DX: J06.9 Acute upper respiratory infection, unspecified (principal); E78.00 Pure hypercholesterolemia, unspecified; I10 Essential (primary) hypertension; Z20.822 Contact with and (suspected) exposure to COVID-19
CPT/HCPCS: 71045; 80053; 83690; 83735; 84484; 85025; 87428; 93005; 96361; 96374; 99285; C9803; J1885; J7120; U0003